=== PATIENT | male | born 1940 | race Caucasian/White ===

== ENCOUNTER 2017-03-13 14:07 | Emergency (ER) | payer MEDICARE, BC ==
[2017-03-13 14:57] LABS: CHLORIDE,CL 104 mmol/L (98-107); SODIUM,NA 141 mmol/L (136-145)
[2017-03-13] MEDS ORDERED: Triamcinolone Acetonide 40 MG/ML 1 ML MDV INJECT ONE (15:36)
[2017-03-13] MEDS ORDERED: Take Home: traMADol 50 MG, 4 Tab Pack PO ONE (15:40)
--- NOTE | 2017-03-13 21:13 | ER ---
Date of Service: 03/13/2017 SUBJECTIVE: Demetris presents to the emergency room with complaints of right wrist pain. The patient denies any trauma to the area but states that he does have a history of gout. He states that the discomfort is isolated again to his left wrist and thumb. The patient states he is not experiencing any numbness or tingling in the distal portion of the left upper extremity. He states that he is currently on allopurinol and does have a history of chronic kidney disease, which would put him at risk for problems with gout. PAST MEDICAL HISTORY: 1. Gout. 2. Chronic kidney disease. 3. Hypertension. 4. Dyslipidemia. 5. Atrial fibrillation. MEDICATIONS: 1. Rosuvastatin. 2. Diltiazem. 3. Losartan. 4. Allopurinol. 5. Potassium chloride. 6. Furosemide. 7. Ondansetron. ALLERGIES: Acetaminophen and hydrocodone. REVIEW OF SYSTEMS: Denies any numbness or tingling distal to the area of discomfort and states that this discomfort is isolated to his left wrist. PHYSICAL EXAMINATION: General: This is a 76-year-old male patient, who is in no acute distress. Vital Signs: Blood pressure is 141/70, pulse rate is 72, respiratory rate is 12, O2 saturations 90% on room air, temperature is 37.1. Skin: Warm, pink, and dry. Musculoskeletal: The patient's left wrist is not warm. There is no crepitus or deformity noted. His range of motion is within normal limits, however, he does have discomfort with rotation of the left wrist. Neurovascular: Circulation, sensation, and motor function are all within normal limits in distal portion of the left upper extremity. LABORATORY DATA: WBCs 8.8, hemoglobin is 12.3, platelets are 156. Chemistry; sodium is 141, potassium is 4.6, chloride is 104, bicarb is 30, BUN is 36, creatinine is 1.8. GFR is 37, glucose is 183. Uric acid is 6.3, calcium is 9.1, corrected calcium is 9.02, total bilirubin is 1.3. AST is 18, ALT 22, alkaline phosphatase is 86. C-reactive protein is 1.3. Total protein is 7.5, albumin is 4.1. RADIOGRAPHIC DATA: Radiographs of the patient's left wrist were obtained. There was no evidence of any fracture dislocation or other pathology. ASSESSMENT: Gout. PLAN: Keep the patient on his current dose of allopurinol. I did give him an injection of Kenalog 40 mg IM. He was also started on prednisone 40 mg once daily for 6 days and was advised to follow up in the clinic in the next 10 to 14 days for recheck. All questions were answered. MWK: 03/13/2017 20:57:40 MODL: 03/13/2017 21:09:53 /[id number]
== END 2017-03-13 15:45 ==
LOC: VM.ED 14:07
DX: M10.9 Gout, unspecified (principal); I12.9 Hypertensive chronic kidney disease with stage 1 through stage 4 chronic kidney disease, or unspecified chronic kidney disease; N18.9 Chronic kidney disease, unspecified; I48.91 Unspecified atrial fibrillation; Z79.899 Other long term (current) drug therapy; Z88.6 Allergy status to analgesic agent; Z88.5 Allergy status to narcotic agent
CPT/HCPCS: 36415; 73110; 80053; 84550; 85025; 86140; 99283; A9270; J3301

== ENCOUNTER 2018-03-25 06:51 | Emergency (ER) | payer MEDICARE, BC ==
[2018-03-25] MEDS ORDERED: Lidocaine 1% 30 ML SDV INJECT ONE (08:19)
--- NOTE | 2018-03-25 09:46 | EDM.PDOC ---
ED HPI GENERAL MEDICAL PROBLEM - General Chief Complaint: Lower Extremity Injury/Pain Stated Complaint: Stubbed Toe Time Seen by Provider: 03/25/18 07:05 Source of Information: Reports: Patient History Limitations: Reports: No Limitations - History of Present Illness INITIAL COMMENTS - FREE TEXT/NARRATIVE: Pt. presents to ER with complaints of L great toe injury. Pt. has a history of neuropathy and foot drop. He states that he stubbed his toe, sustaining what appeared to be an open fracture of the toe. Denies any injury elsewhere. He did not fall. Pt. has had numerous issues with this digit, including surgery to the toe for what was thought to be bunion, but was in fact gout. He typically wears a post op shoe on this extremity. Location: Reports: Lower Extremity, Left - Related Data Allergies Allergy/AdvReac Type Severity Reaction Status Date / Time acetaminophen [From Vicodin] Allergy Other Verified 03/13/17 14:19 hydrocodone [From Vicodin] Allergy Lethargy Verified 03/25/18 06:54 niacin Allergy Other Verified 03/25/18 07:35 Home Meds: Home Meds Allopurinol [Zyloprim] 200 mg PO DAILY 03/25/18 [History] Aspirin 81 mg PO DAILY 03/25/18 [History] Calc/D3/Mag/Zn/Upper Cutter Out/Naresh/Aguirre [Calcium 600 MG Plus Vit D] 1 each PO DAILY [History] Diltiazem [Cardizem CD] 120 mg PO DAILY 03/25/18 [History] Ferrous Sulfate 28 mg PO DAILY 03/25/18 [History] Losartan [Cozaar] 25 mg PO DAILY 03/25/18 [History] Potassium Chloride [Klor-Con M20] 20 meq PO DAILY 03/25/18 [History] Rosuvastatin [Crestor] 10 mg PO DAILY 03/25/18 [History] Torsemide [Demadex] 40 mg PO DAILY 03/25/18 [History] Past Medical History - Past Health History Medical/Surgical History: Denies Medical/Surgical History HEENT History: Reports: Cataract Cardiovascular History: Reports: Afib, Heart Failure, High Cholesterol, Hypertension Other Cardiovascular History: Endocarditis (valve). Mitral valve disorder Musculoskeletal History: Reports: Gout Hematologic History: Reports: Anemia - Infectious Disease History Infectious Disease History: Reports: MRSA Social & Family History - Tobacco Use Smoking Status *Q: Never Smoker - Caffeine Use Caffeine Use: Reports: None - Recreational Drug Use Recreational Drug Use: No Review of Systems - Review of Systems Review Of Systems: ROS reveals no pertinent complaints other than HPI. ED EXAM, GENERAL - Physical Exam Exam: See Below Extremities: Other (Disruption of the proximal great toenail with laceration to the lateral aspects of the cuticle.Tip of toe is protruding downward due to probable distal toe fracture.) ED TRAUMA EXTREMITY PROCEDURES - Additional/Other Procedure(s) Other (Free Text) Procedure(s): [facility] was contacted about management of this injury, and whether internal fixation would be required. He felt that the pt. could be managed conservatively. Time out was performed. Consent was obtained. The base of the toe was cleansed with chlorhexidine and 3.5 ml of 1% lidocaine was used to place a digital block. This was complicated due to a pressure ulcer/callous to he dorsal medial aspect of the toe. After the nail was removed, the area with irrigated with 1 liter of NS under pressure. After anesthesia was obtained, the toenail was removed. several attempts to apply vicril sutures to the lacerated nail matrix were unsuccessful due to the matrix being extremely macerated and unable to hold a suture. Subsequently, 4-0nylon sutures were placed in the medial laceration tot he cuticle. 2 vicril sutures were also placed to provide further support once the nylon sutures were removed. The same was done on the lateral side, with 1 nylon and 1 vicril suture. Pressure bandage was placed to help control the bleeding from macerated nail matrix. Course - Vital Signs Last Recorded V/S: Last Vital Signs Temp 36.5 C 03/25/18 07:15 Pulse 61 03/25/18 07:15 Resp 16 03/25/18 07:15 BP 140/65 03/25/18 07:15 Pulse Ox 93 L 03/25/18 07:15 - Orders/Labs/Meds Orders: Active Orders 24 hr Category Date Time Status Toes Great Toe Lt TA [CR] Stat Exams 03/25/18 07:12 Taken Meds: Medications Discontinued Medications Generic Name Dose Route Start Last Admin Trade Name Freq PRN Reason Stop Dose Admin Lidocaine HCl 30 ml 03/25/18 08:19 03/25/18 08:24 Xylocaine-Mpf 1% INJECT 03/25/18 08:20 30 ml ONETIME ONE Administration Departure - Departure Time of Disposition: 09:40 Disposition: Home, Self-Care 01 Condition: Good Clinical Impression: Fracture of distal phalanx of toe of left foot - Discharge Information Instructions: Toe Fracture, [id number], Fingernail or Toenail Removal, Adult , Care After Referrals: Eric Contreras MD [Primary Care Provider] - Forms: ED Department Discharge Additional Instructions: Follow up with Dr. Moises Santa on 04-04-18 at 1:40 at [facility]. Address is [address] [place] [address] Keflex 500mg 4 times daily for 7 days. Follow-up in clinic sooner if redness, swelling, or discharge from the area. - My Orders Last 24 Hours: My Active Orders 03/25/18 07:12 Toes Great Toe Lt TA [CR] Stat - Assessment/Plan Last 24 Hours: My Active Orders 03/25/18 07:12 Toes Great Toe Lt TA [CR] Stat
== END 2018-03-25 09:30 | disposition home or self-care (01) ==
LOC: VM.ED 06:51
DX: S92.422A Displaced fracture of distal phalanx of left great toe, initial encounter for closed fracture (principal); S91.212A Laceration without foreign body of left great toe with damage to nail, initial encounter; I11.0 Hypertensive heart disease with heart failure; I50.9 Heart failure, unspecified; I48.91 Unspecified atrial fibrillation; E78.00 Pure hypercholesterolemia, unspecified; D64.9 Anemia, unspecified; Z79.82 Long term (current) use of aspirin; Z79.899 Other long term (current) drug therapy; Z88.8 Allergy status to other drugs, medicaments and biological substances; W22.8XXA Striking against or struck by other objects, initial encounter
CPT/HCPCS: 11760; 12002; 64450; 73660-TA; 99283; 99283-GF-25

== ENCOUNTER 2021-04-24 10:55 | Observation (INO) | payer MEDICARE, BC ==
[2021-04-24] MEDS ORDERED: Sodium Chloride 0.9% 10 ML Syringe FLUSH PRN (11:14)
[2021-04-24] MEDS ORDERED: Insulin Lispro 100 Units/ML 3 ML Vial SUBCUT ONE ×2 (11:15→19:05)
[2021-04-24] MEDS ORDERED: Glucagon,Human Recombinant 1 MG Vial IM PRN (11:15)
[2021-04-24] MEDS ORDERED: 50% Dextrose in Water 50 ML Syringe IVPUSH PRN (11:15)
[2021-04-24] MEDS: Insulin Glarg,Human.Rec.Analog 100 Unit/ML SUBCUT SCH (12:12)
[2021-04-24] MEDS: Sodium Chloride 0.9% 1,000 ML IV SCH ×2 (12:31→21:15)
[2021-04-24] MEDS: Magnesium Oxide 400 MG Tab PO SCH (15:04)
[2021-04-24 15:33] LABS: HEMOGLOBIN A1C 7.5 % (<5.7)
[2021-04-24 15:40] LABS: ANION GAP 13.7 mmol/L (5-15)
[2021-04-24] MEDS ORDERED: Acetaminophen 500 MG Tab PO PRN (15:46)
[2021-04-24] MEDS ORDERED: Zolpidem 5 MG Tab PO PRN (15:46)
--- NOTE | 2021-04-24 15:50 | PCM.EKG ---
#1 Interpretation EKG Date: 04/24/21 Rhythm: NSR [place]: Normal P-Wave: Present QRS: Normal ST-T: Depressed QT: Normal Comparison: Change From Previous EKG (prevous EKG was a. arsenio)
[2021-04-24] MEDS: Aspirin 81 MG Tab.Chew PO SCH (17:39)
--- NOTE | 2021-04-24 18:08 | HP ---
CHIEF COMPLAINT: Hyperglycemia. HISTORY OF PRESENT ILLNESS: This is an 81-year-old male who had a sudden onset of hearing loss, was started on a Medrol Dosepak on 04/11, and then went to ENT and was given 60 mg of prednisone on 04/15. He has been taking that 30 mg BID now and 30 mg daily, but his blood sugar this morning was quite high. He did eat a little breakfast, it was over 400. Then, at the clinic, he had lab work showing it to be 634. He does have chronic kidney disease. His creatinine was over 2 and usually it is not. He has no formal diagnosis of diabetes, but this Spring, he had 177 blood sugar. His A1c last fall was only 5.2. The patient has had a dry mouth. He has been thirsty, but has not been peeing any more than usual. He feels his vision is not quite normal, but does not think it is that bad. He has lost 9 pounds in just 1 week, he has not really noticed. Heart rate is running a little fast in the clinic. He has a history of AFib and some heart surgeries, but he has otherwise not had any fever. No chills. No cough. No abdominal pain. No nausea, vomiting, diarrhea. Just does not really feel well. The patient tells me the same thing happened to him when he got a back injection down in [place] in the past and he just got some outpatient insulin. ALLERGIES: Tylenol injection, but can take oral Tylenol. Hydrocodone causes stomach pain. Niacin causes a racing heart rate and Vicodin causes drowsiness. MEDICATION LIST: Reviewed. The patient is on the prednisone 30 mg twice daily, Protonix 40 mg daily, potassium 20 mEq daily, Crestor 10 mg daily, Ambien 1/2 to 1 tablet at bedtime as needed for sleep, diltiazem 120 daily, Tylenol 500 as needed, allopurinol 200 daily, biotin 5 mg daily, and Demadex 40 in the morning and 20 in the evening per [place]. PAST MEDICAL HISTORY: Does include chronic AFib, status post mitral and tricuspid repair with a Watchman BRITTON closure in 2011 at [facility]. He had RVR again in 2016, not on anticoagulation. Chronic kidney disease stage 3. His last baseline creatinine was 1.93 in November, today it was 2.35. He also had congestive heart failure with EF of 45% in 06/2020. He had pulmonary hypertension, gout, hyperlipidemia, essential hypertension, history of MRSA. Peripheral neuropathy, lumbar radiculopathy, trigeminal neuralgia with gamma knife for that. PAST SURGICAL HISTORY: He has had a TURP surgery, TMJ, spinal surgery, joint replacements, bilateral knees and hips, inguinal hernia, left great toe surgery. He has had colonoscopies. He has had the Watchman. He has had other foot surgeries. He has had a circumcision. In 2014, he has had cataracts, and he had the tricuspid and mitral repairs back in 2011. FAMILY HISTORY: The patient has both parents . Father had heart disease, of [place] at age 62. SOCIAL HISTORY: He is . He is retired thomas. He has 5 children. He denies any alcohol or smoking. He lives at home with his . REVIEW OF SYSTEMS: General: As stated in HPI for weight changes. No fever, no chills. HEENT: No trouble swallowing. Cardiac: No chest pain. No palpitations. Respiratory: No cough. No shortness of breath. Otherwise, all systems reviewed as stated. PHYSICAL EXAMINATION: Vital Signs: On admission to [facility], his weight 86.6 kg, temperature 97.6, pulse 115, blood pressure 127/82, respiratory rate 21, O2 of 95% on room air. General: He is in no acute distress. Heart: Regular rate and rhythm. S1, S2 without murmur. Lungs: Sounds are clear to auscultation bilaterally without crackles or wheezes. Abdomen: Positive bowel sounds. Soft, nondistended, nontender. Extremities: Warm and dry. No edema. Mental Status: Alert and orientated x3. LABORATORY DATA: Lab work does show him to have the glucose today 634, BUN 74, creatinine 2.3, sodium 133, potassium 5.2, chloride 92, bicarb 25, chloride 92, bicarb 25, calcium 9.6, GFR down to 27. ASSESSMENT AND PLAN: 1. Symptomatic hyperglycemia, likely underlying diabetes. We will repeat lab work this afternoon with an A1c. I will get him admitted. I will give him 1 L of normal saline and 10 units of Humalog and 15 units of Lantus. He may eat lunch. We will hopefully have the blood sugars come down gradually like 400s and even 300s before discharge later today, and off prednisone as he will be seeing ENT tomorrow and they may elect to inject the ear. 2. Acute hearing loss. He has been on prednisone. He has a followup with ENT tomorrow. 3. History of heart failure. His diuretics are on hold. We are giving him fluids. We will monitor closely. 4. Hyperkalemia. We will hold his oral potassium. 5. Hyponatremia, pseudo due to elevated blood sugars. 6. Acute on chronic renal failure due to dehydration from probably increased urination from the hyperglycemia. 7. History of atrial fibrillation. He is on diltiazem. 8. Gastroesophageal reflux disease. He is on Protonix. Plan: The patient is admitted for observation for IV fluids and insulin. I anticipate he will be discharged home later today after he has had followup lab work. He is a code level 1. He will have a COVID test on hospital admission as well. MKA: 04/24/2021 15:21:31 MODL: 04/24/2021 18:05:30 /[id number] URIEL
[2021-04-25] MEDS: Sodium Chloride 0.9% 1,000 ML IV SCH (06:23)
[2021-04-25 07:09] LABS: ANION GAP 10.3 mmol/L (5-15)
[2021-04-25] MEDS: Insulin Glarg,Human.Rec.Analog 100 Unit/ML SUBCUT SCH (07:50)
[2021-04-25] MEDS: Magnesium Oxide 400 MG Tab PO SCH (07:53)
[2021-04-25] MEDS: Aspirin 81 MG Tab.Chew PO SCH (07:53)
[2021-04-25] MEDS ORDERED: Diltiazem 120 MG Cap.CD PO SCH (08:00)
[2021-04-25] MEDS ORDERED: atorvaSTATin 40 MG Tab PO SCH (08:00)
[2021-04-25] MEDS ORDERED: Torsemide 20 MG Tab PO SCH (08:45)
--- NOTE | 2021-04-25 09:35 | CR ---
[id number] RAD/RAD Chest PA or AP 1V EXAM: SINGLE VIEW CHEST. INDICATION: SHORTNESS OF BREATH COMPARISON: NO PREVIOUS SIMILAR EXAM IS AVAILABLE FINDINGS: Pulmonary vascularity is borderline elevated. There are cardiac surgical changes There is significant cardiomegaly. There are old right rib fractures IMPRESSION: BORDERLINE EDEMA Mazin Ochoa MD 04/25/21 0934 Thank you for allowing us to participate in the care of your patient.
--- NOTE | 2021-04-26 13:09 | DISCH ---
PRIMARY DISCHARGE DIAGNOSES: 1. Acute on chronic renal failure secondary to volume depletion from dehydration with hyperglycemia. 2. Severe hyperglycemia due to steroids with underlying newly diagnosed type 2 diabetes, A1c 7.5. 3. Hyperkalemia, probably due to potassium supplements in the setting of renal failure. 4. Hyponatremia due to hyperglycemia, resolved. Sodium 138 on discharge. 5. Known history of heart failure with an EF of 45% back in 06/2020. The patient also has paroxysmal atrial fibrillation with a Watchman device in place and a history of mitral and tricuspid repair. He was restarted on 81 mg daily of aspirin. 6. Spells happen during the night. Unclear if the patient is having any transient ischemic attacks. He has had previous trigeminal neuralgia. He has had procedures done for that in the past. 7. Essential hypertension, hyperlipidemia, chronic osteoarthritis with previous joint replacements. REASON FOR ADMISSION: On the date of admission, this 81-year-old male who had been on Medrol dose pack since office visit for acute hearing loss on 04/11, was recently taking 30 mg daily of prednisone, came into the clinic just not feeling that well, feeling like a blood sugar was high. He checked it at home on his 's machine, it was over 400. Unfortunately, in the clinic, it was over 600 and his creatinine that was 1.9 a few months ago was up to 2.3, and also his glucose was 177 at that time, but his A1c was normal last year. He had not any cough. No fever. No chills. No burning with urination. He was given IV fluids and unfortunately his creatinine bumped up to 2.6. However, urine was completely normal other than glucose, negative for infection, and by this morning, his creatinine came down to 1.8. He was making lots of urine, but did get 2.7 L of fluid in and admitted. He was just feeling a little short of breath especially while lying flat. Therefore, his Demadex was restarted this morning. His O2 was 97% on room air. His chest x-ray did show some fluid congestion. His proBNP was added and did return mildly elevated at 1758. Liver enzymes also showed bilirubin mildly up to 1.8. ALT, AST normal, and alkaline phosphatase 61. The patient was discharged home to follow up in the clinic on Wednesday with labs. He also had an ENT visit, but they visited over the phone. No more prednisone planned, but ear cortisone shot was scheduled for [place] for Wednesday. The patient's white count was also 14.2 and 13.2 today. No infection was identified. He had no fever, no chills. He was feeling much better after getting some IV fluids and he was eating 100% of his meals. OBJECTIVE: Vital Signs: His discharging vitals include a temperature of 98.6, pulse 101. His EKG did show a sinus rhythm, but he has a known history of atrial fibrillation. Blood pressure 119/82, respiratory rate 16, and O2 of 97% on room air. General: He is in no acute distress. Heart: Irregularly irregular. Lungs: Sounds are slightly decreased, but no crackles, no wheezes. Abdomen: Positive bowel sounds. Soft, nondistended, nontender. Extremities: Warm and dry. No edema. Mental Status: Alert and orientated x3. DISCHARGE PLANS AND INSTRUCTIONS: The patient will follow up with Jose Fernandez on Wednesday. He will check his blood sugar 2 times a day over the weekend and will take 8 units of Lantus in the morning if his blood sugar is over 150. He may also check his blood sugar during the day if not feeling well. He was given the vial of Lantus to take home and some pen needles. If his shortness of breath got worse, he was supposed to notify us. Otherwise, resume the 40 of Demadex in the morning, 20 later in the day. He was also started on aspirin 81 mg daily, and told to stop taking potassium supplements at discharge. With the insulin that he received in the hospital, his blood sugars gradually improved from the 500s, 400s, even 211, and then later 199 today. No new diabetic medication was started, but Januvia would be a good option for this patient on discharge, given his chronic kidney disease. I also did touch base with Cardiology, and in fact, they did recommend due to the Watchman, he should be on aspirin. Greater than 30 minutes spent on this discharge process. MKA: 04/25/2021 16:47:21 MODL: 04/25/2021 17:30:33 /[id number] URIEL
== END 2021-04-25 09:00 | disposition home or self-care (01) ==
LOC: VM.MS 10:57
PROVIDERS: ADMIT Internal Medicine; ATTEND Internal Medicine
DX: E11.65 Type 2 diabetes mellitus with hyperglycemia (principal); E86.0 Dehydration; E87.6 Hypokalemia; E86.9 Volume depletion, unspecified; E87.1 Hypo-osmolality and hyponatremia; I13.0 Hypertensive heart and chronic kidney disease with heart failure and stage 1 through stage 4 chronic kidney disease, or unspecified chronic kidney disease; E11.9 Type 2 diabetes mellitus without complications; E11.22 Type 2 diabetes mellitus with diabetic chronic kidney disease; N17.9 Acute kidney failure, unspecified; N18.30 Chronic kidney disease, stage 3 unspecified; I50.9 Heart failure, unspecified; E78.5 Hyperlipidemia, unspecified; M19.90 Unspecified osteoarthritis, unspecified site; I48.0 Paroxysmal atrial fibrillation; Z79.82 Long term (current) use of aspirin; Z20.822 Contact with and (suspected) exposure to COVID-19
CPT/HCPCS: 36415; 71045; 80048; 80053; 81003; 82947; 83036; 83735; 83880; 85025; 93005; A9270-GY; G0378; J1815-GY; J7030; U0002

== ENCOUNTER 2022-01-17 04:03 | Emergency (ER) | payer MEDICARE, BC ==
[2022-01-17 05:04] LABS: ANION GAP 14.1 mmol/L (5-15)
== END 2022-01-17 06:00 | disposition home or self-care (01) ==
LOC: VM.ED 04:03
DX: R00.1 Bradycardia, unspecified (principal); I48.91 Unspecified atrial fibrillation; I13.0 Hypertensive heart and chronic kidney disease with heart failure and stage 1 through stage 4 chronic kidney disease, or unspecified chronic kidney disease; N18.30 Chronic kidney disease, stage 3 unspecified; I50.9 Heart failure, unspecified; D63.1 Anemia in chronic kidney disease; Z88.5 Allergy status to narcotic agent; Z88.1 Allergy status to other antibiotic agents; Z79.899 Other long term (current) drug therapy; Z79.82 Long term (current) use of aspirin; Z79.4 Long term (current) use of insulin
CPT/HCPCS: 36415; 80053; 84484; 85025; 93005; 99284; 99285-25

== ENCOUNTER 2023-02-01 02:55 | Emergency (ER) | payer MEDICARE, BC | END 2023-02-01 03:41 | disposition short-term general hospital (02) | LOC: VM.ED 02:55 | DX: S98.122A Partial traumatic amputation of left great toe, initial encounter (principal); I13.0 Hypertensive heart and chronic kidney disease with heart failure and stage 1 through stage 4 chronic kidney disease, or unspecified chronic kidney disease; I50.9 Heart failure, unspecified; N18.30 Chronic kidney disease, stage 3 unspecified; E78.00 Pure hypercholesterolemia, unspecified; Z88.5 Allergy status to narcotic agent; Z88.8 Allergy status to other drugs, medicaments and biological substances; Z79.899 Other long term (current) drug therapy; Z79.82 Long term (current) use of aspirin; Z79.4 Long term (current) use of insulin; W19.XXXA Unspecified fall, initial encounter | CPT/HCPCS: 73560-LT; 73660-TA; 99284; 99285 ==

== ENCOUNTER 2023-02-24 18:30 | Emergency (ER) | payer MEDICARE, BC | END 2023-02-24 20:15 | disposition home or self-care (01) | LOC: VM.ED 18:30 | DX: Z71.1 Person with feared health complaint in whom no diagnosis is made (principal); I48.91 Unspecified atrial fibrillation; I13.0 Hypertensive heart and chronic kidney disease with heart failure and stage 1 through stage 4 chronic kidney disease, or unspecified chronic kidney disease; N18.30 Chronic kidney disease, stage 3 unspecified; I50.9 Heart failure, unspecified; E78.00 Pure hypercholesterolemia, unspecified; Z88.5 Allergy status to narcotic agent; Z88.8 Allergy status to other drugs, medicaments and biological substances; Z79.82 Long term (current) use of aspirin; Z79.4 Long term (current) use of insulin | CPT/HCPCS: 99283; 99284 ==

== ENCOUNTER 2024-02-18 14:36 | Inpatient (IN) | payer MEDICARE, BC ==
[2024-02-18] MEDS ORDERED: Sodium Chloride 0.9% 10 ML Syringe FLUSH PRN (14:55)
[2024-02-18 15:17] LABS: BASOPHILS PERCENT AUTO 0.1 % (0.2-1.2); EOSINOPHILS PERCENT AUTO 0.1 % (0.0-4.0); HEMATOCRIT 36.1 % (40.0-52.0); HEMOGLOBIN 10.9 g/dL (14.0-18.0); IMMATURE GRAN ABSOLUTE AUTO 0.09 x10^3/uL (0.00-0.07); LYMPHOCYTES ABSOLUTE AUTO 0.5 x10^3/uL (1.0-4.8); MEAN CORPUSCULAR HEMOGLOBIN 24.7 pg (26.0-32.0); MEAN CORPUSCULAR HGB CONC 30.2 g/dL (32.0-36.0); MEAN CORPUSCULAR VOLUME 81.7 fL (78.0-93.0); MONOCYTES ABSOLUTE AUTO 0.4 x10^3/uL (0.0-0.8); MONOCYTES PERCENT AUTO 1.9 % (2.0-11.0); NEUTROPHILS ABSOLUTE AUTO 17.1 x10^3/uL (1.8-7.7); NEUTROPHILS PERCENT AUTO 94.4 % (50.0-80.0); PLATELET COUNT,PLT 190 x10^3/uL (130-400); RED BLOOD CELL COUNT 4.42 x10^6/uL (4.5-6.0); WHITE BLOOD CELL COUNT,WBC 18.1 x10^3/uL (4.0-10.0)
[2024-02-18 15:35] LABS: INR 1.4 (0.9-1.1); PROTHROMBIN TIME 13.9 SEC (8.9-11.5); PTT,PARTIAL THROMBOPLSTIN TIME 32.2 SEC (21.9-33.8)
[2024-02-18 15:41] LABS: APPEARANCE,URINE CLEAR (CLEAR); BILIRUBIN,URINE NEGATIVE (NEGATIVE); COLOR,URINE YELLOW (YELLOW); GLUCOSE,URINE 500 mg/dL (NEGATIVE); KETONES,URINE NEGATIVE (NEGATIVE); LEUKOCYTE ESTERASE,URINE NEGATIVE (NEGATIVE); NITRITE,URINE NEGATIVE (NEGATIVE); OCCULT BLOOD,URINE NEGATIVE (NEGATIVE); PROTEIN,URINE TRACE mg/dL (NEGATIVE); UROBILINOGEN,URINE 0.2 EU/dL (0.2)
[2024-02-18 15:43] LABS: LACTIC ACID 2.6 mmol/L (0.4-2.0)
[2024-02-18 15:48] LABS: BACTERIA,URINE RARE /HPF (NOT SEEN); HYALINE CASTS,URINE OCCASIONAL; RBC,URINE NOT SEEN /HPF (NOT SEEN); SQUAMOUS EPITHELIAL CELLS,UR RARE /HPF (NOT SEEN); WBC,URINE 0-5 /HPF (NOT SEEN)
[2024-02-18 15:51] LABS: BILIRUBIN TOTAL 1.3 mg/dL (0.2-1.0); CHLORIDE,CL 99 mmol/L (98-107); POTASSIUM,K 5.3 mmol/L (3.5-5.1); PROTEIN TOTAL,TP 7.7 g/dL (6.4-8.2)
[2024-02-18 16:10] LABS: A/G RATIO 0.28; ALANINE AMINOTRANSFERASE,ALT 14 U/L (16-63); ALBUMIN 1.7 g/dL (3.4-5.0); ALKALINE PHOSPHATASE 455 U/L (46-116); ANION GAP 18.3 mmol/L (5-15); ASPARTATE AMNIOTRANSFERASE,AST 16 U/L (15-37); CALCIUM 9.2 mg/dL (8.5-10.1); CARBON DIOXIDE,CO2 23 mmol/L (21-32); CREATININE 2.9 mg/dL (0.70-1.30); GLUCOSE RANDOM 201 mg/dL (70-99); MAGNESIUM 2.3 mg/dL (1.8-2.4); SODIUM,NA 135 mmol/L (136-145)
[2024-02-18 16:11] LABS: BLOOD UREA NITROGEN,BUN 86 mg/dL (7-18); ESTIMATED GFR 21 mL/min (>=60)
[2024-02-18 16:39] LABS: PRO B-TYPE NATRIUR PEPT,BNPPRO 25083 pg/mL (<=450)
[2024-02-18] MEDS: Furosemide 40 MG/4 ML VIAL IV ONE (16:45)
[2024-02-18] MEDS: cefTRIAXone 1 GM Vial IVPUSH ONE (16:48)
[2024-02-18] MEDS ORDERED: Glucagon,Human Recombinant 1 MG Vial IM PRN (17:57)
[2024-02-18] MEDS ORDERED: 50% Dextrose in Water 50 ML Syringe IVPUSH PRN (17:57)
[2024-02-18] MEDS ORDERED: Acetaminophen 325 MG Tab PO PRN (18:40)
[2024-02-18] MEDS ORDERED: guaiFENesin 600 MG Tab.ER PO PRN (18:40)
[2024-02-18] MEDS ORDERED: traMADol 50 MG Tab PO PRN (18:50)
[2024-02-18 19:10] LABS: CALCIUM 9.3 mg/dL (8.5-10.1); CARBON DIOXIDE,CO2 24 mmol/L (21-32); CHLORIDE,CL 98 mmol/L (98-107); CREATININE 2.9 mg/dL (0.70-1.30); GLUCOSE RANDOM 238 mg/dL (70-99); POTASSIUM,K 5.1 mmol/L (3.5-5.1); SODIUM,NA 133 mmol/L (136-145)
[2024-02-18 19:11] LABS: ANION GAP 16.1 mmol/L (5-15)
[2024-02-18 19:12] LABS: BLOOD UREA NITROGEN,BUN 87 mg/dL (7-18); ESTIMATED GFR 21 mL/min (>=60)
[2024-02-18] MEDS: cefTRIAXone 1 GM Vial IVPUSH SCH (19:25)
[2024-02-18] MEDS: Piperacillin/Tazobactam 4.5 GM in Sodium Chloride 0.9% 100 ML IV ONE (19:44)
[2024-02-18] MEDS: Insulin Lispro 100 Units/ML 3 ML Vial SUBCUT SCH (19:49)
[2024-02-18] MEDS: Furosemide 40 MG/4 ML VIAL IV SCH (19:59)
[2024-02-18] MEDS ORDERED: Piperacillin/Tazobactam 4.5 GM in Sodium Chloride 0.9% 100 ML IV SCH (20:30)
[2024-02-18] MEDS: Heparin Sodium 5,000 Units/ML Vial SUBCUT SCH (20:43)
[2024-02-18] MEDS: Azithromycin 500 MG in Sodium Chloride 0.9% 250 ML IV SCH (20:44)
[2024-02-18] MEDS: traMADol 50 MG Tab PO SCH (21:35)
[2024-02-18] MEDS: Melatonin 3 MG Tab PO SCH (21:35)
[2024-02-18] MEDS: Clopidogrel 75 MG Tab PO SCH (21:35)
[2024-02-18] MEDS: Acetaminophen 500 MG Tab PO SCH (21:35)
[2024-02-18] MEDS: Insulin Glarg,Human.Rec.Analog 100 Unit/ML 10 ML Vial SUBCUT SCH (21:36)
[2024-02-18] MEDS: Bacitracin Oint 1 GM U/D Packet TOP SCH (21:37)
[2024-02-18] MEDS: Albuterol 0.083% 2.5 MG/3 ML Neb Soln NEB PRN (21:55)
[2024-02-18] MEDS: Piperacillin/Tazobactam 4.5 GM in Sodium Chloride 0.9% 100 ML IV SCH (23:58)
[2024-02-19 07:41] LABS: EOSINOPHILS PERCENT AUTO 0.1 % (0.0-4.0); HEMATOCRIT 35.5 % (40.0-52.0); HEMOGLOBIN 10.9 g/dL (14.0-18.0); IMMATURE GRAN ABSOLUTE AUTO 0.14 x10^3/uL (0.00-0.07); LYMPHOCYTES ABSOLUTE AUTO 0.6 x10^3/uL (1.0-4.8); LYMPHOCYTES PERCENT AUTO 4.1 % (25.0-50.0); MEAN CORPUSCULAR HEMOGLOBIN 24.8 pg (26.0-32.0); MEAN CORPUSCULAR HGB CONC 30.7 g/dL (32.0-36.0); MEAN CORPUSCULAR VOLUME 80.7 fL (78.0-93.0); MONOCYTES ABSOLUTE AUTO 0.2 x10^3/uL (0.0-0.8); MONOCYTES PERCENT AUTO 1.3 % (2.0-11.0); NEUTROPHILS ABSOLUTE AUTO 14.3 x10^3/uL (1.8-7.7); NEUTROPHILS PERCENT AUTO 93.6 % (50.0-80.0); PLATELET COUNT,PLT 175 x10^3/uL (130-400); WHITE BLOOD CELL COUNT,WBC 15.3 x10^3/uL (4.0-10.0)
[2024-02-19 07:59] LABS: A/G RATIO 0.26; ALBUMIN 1.6 g/dL (3.4-5.0); BILIRUBIN TOTAL 1.4 mg/dL (0.2-1.0); CALCIUM 9.3 mg/dL (8.5-10.1); CREATININE 2.9 mg/dL (0.70-1.30); EST CRCL DRUG DOSING (CG) 17.41 mL/min; POTASSIUM,K 4.7 mmol/L (3.5-5.1); PROTEIN TOTAL,TP 7.7 g/dL (6.4-8.2)
[2024-02-19 08:00] LABS: ANION GAP 14.7 mmol/L (5-15)
[2024-02-19] MEDS: Polyethylene Glycol 3350 Powder 17 GM Packet PO SCH (09:00)
[2024-02-19] MEDS: Linezolid 600 MG Tab PO SCH (13:17)
[2024-02-19] MEDS ORDERED: traMADol 50 MG Tab PO PRN (15:23)
[2024-02-19] MEDS: DAPTOmycin 500 MG Vial IVPUSH SCH ×2 (16:55→17:10)
[2024-02-19] MEDS: Zolpidem 5 MG Tab PO PRN (20:15)
[2024-02-19] MEDS: traMADol 50 MG Tab PO SCH (20:15)
[2024-02-20] MEDS: HYDROmorphone 0.5 MG/0.5 ML Syringe IVPUSH PRN (00:51)
[2024-02-20 07:39] LABS: EOSINOPHILS PERCENT AUTO 0.3 % (0.0-4.0); HEMATOCRIT 34.1 % (40.0-52.0); HEMOGLOBIN 10.4 g/dL (14.0-18.0); IMMATURE GRAN ABSOLUTE AUTO 0.13 x10^3/uL (0.00-0.07); LYMPHOCYTES ABSOLUTE AUTO 1.5 x10^3/uL (1.0-4.8); LYMPHOCYTES PERCENT AUTO 12.3 % (25.0-50.0); MEAN CORPUSCULAR HEMOGLOBIN 24.7 pg (26.0-32.0); MEAN CORPUSCULAR HGB CONC 30.5 g/dL (32.0-36.0); MONOCYTES ABSOLUTE AUTO 0.4 x10^3/uL (0.0-0.8); MONOCYTES PERCENT AUTO 2.9 % (2.0-11.0); NEUTROPHILS ABSOLUTE AUTO 10.3 x10^3/uL (1.8-7.7); NEUTROPHILS PERCENT AUTO 83.4 % (50.0-80.0); PLATELET COUNT,PLT 167 x10^3/uL (130-400); RED BLOOD CELL COUNT 4.21 x10^6/uL (4.5-6.0); WHITE BLOOD CELL COUNT,WBC 12.3 x10^3/uL (4.0-10.0)
[2024-02-20 07:55] LABS: A/G RATIO 0.25; ALBUMIN 1.5 g/dL (3.4-5.0); BILIRUBIN TOTAL 1.2 mg/dL (0.2-1.0); CALCIUM 9.5 mg/dL (8.5-10.1); EST CRCL DRUG DOSING (CG) 16.29 mL/min; PROTEIN TOTAL,TP 7.5 g/dL (6.4-8.2)
[2024-02-20 08:04] LABS: CREATININE 3.1 mg/dL (0.70-1.30)
== END 2024-02-20 14:00 | disposition short-term general hospital (02) | DRG 871 ==
LOC: VM.ED 14:36 → VM.MS 16:20
PROVIDERS: ADMIT Internal Medicine; ATTEND Internal Medicine
PROC: 0T9B70Z Drainage of Bladder with Drainage Device, Via Natural or Artificial Opening (ICD-10-PCS; principal; 2024-02-18)
PROC: 3E03329 Introduction of Other Anti-infective into Peripheral Vein, Percutaneous Approach (ICD-10-PCS; 2024-02-18)
DX: A41.9 Sepsis, unspecified organism (principal); A41.89 Other specified sepsis; I50.31 Acute diastolic (congestive) heart failure; J18.9 Pneumonia, unspecified organism; J96.01 Acute respiratory failure with hypoxia; I13.0 Hypertensive heart and chronic kidney disease with heart failure and stage 1 through stage 4 chronic kidney disease, or unspecified chronic kidney disease; L03.115 Cellulitis of right lower limb; I50.9 Heart failure, unspecified; N18.9 Chronic kidney disease, unspecified; N17.9 Acute kidney failure, unspecified; I42.0 Dilated cardiomyopathy; I48.11 Longstanding persistent atrial fibrillation; I38 Endocarditis, valve unspecified; R65.20 Severe sepsis without septic shock; A41.50 Gram-negative sepsis, unspecified; Z91.048 Other nonmedicinal substance allergy status; E11.22 Type 2 diabetes mellitus with diabetic chronic kidney disease; N18.30 Chronic kidney disease, stage 3 unspecified; E11.51 Type 2 diabetes mellitus with diabetic peripheral angiopathy without gangrene; Z66 Do not resuscitate; I25.10 Atherosclerotic heart disease of native coronary artery without angina pectoris; E78.00 Pure hypercholesterolemia, unspecified; I27.20 Pulmonary hypertension, unspecified; M10.9 Gout, unspecified; E11.42 Type 2 diabetes mellitus with diabetic polyneuropathy; Z96.653 Presence of artificial knee joint, bilateral; Z96.643 Presence of artificial hip joint, bilateral; N40.0 Benign prostatic hyperplasia without lower urinary tract symptoms; E11.65 Type 2 diabetes mellitus with hyperglycemia; G47.00 Insomnia, unspecified; I87.2 Venous insufficiency (chronic) (peripheral); I95.9 Hypotension, unspecified; S81.801A Unspecified open wound, right lower leg, initial encounter; X58.XXXA Exposure to other specified factors, initial encounter; Z88.1 Allergy status to other antibiotic agents; Z95.0 Presence of cardiac pacemaker; Z87.81 Personal history of (healed) traumatic fracture; Z88.8 Allergy status to other drugs, medicaments and biological substances; Z79.02 Long term (current) use of antithrombotics/antiplatelets; Z79.899 Other long term (current) drug therapy; Z79.84 Long term (current) use of oral hypoglycemic drugs; Z79.51 Long term (current) use of inhaled steroids; Z79.4 Long term (current) use of insulin; Z95.818 Presence of other cardiac implants and grafts; Z98.49 Cataract extraction status, unspecified eye; Z95.2 Presence of prosthetic heart valve; Z98.890 Other specified postprocedural states; Z89.412 Acquired absence of left great toe
CPT/HCPCS: 36415; 51702; 71045; 80048; 80053; 81001; 82947; 83605; 83735; 83880; 84145; 84484; 85025; 85610; 85652; 85730; 86140; 87040; 87070; 87077; 87186; 87205; 93005; 93010; 94640; 99284; 99285; A9270-GY; J0456; J0696; J0878; J1170; J1644; J1815-GY; J1940; J2543; J3490; J7050; J7613-GY